=== PATIENT | male | born 1970 | race African-American/Black ===

== ENCOUNTER 2016-07-28 11:45 | Emergency (ER) | payer MEDICAID ==
[~2016-07-28] VITALS: Ht 182.9 cm; Wt 84.0 kg
[~2016-07-28 11:45] MED LIST: METH-24 PO
[2016-07-28 12:20] VITALS: BP 150/99
[2016-07-28] MEDS ORDERED: ACETAMINOPHEN 325MG TABLET PO ONE (14:00)
== END 2016-07-28 14:02 | disposition home or self-care (01) ==
LOC: ER 12:22
DX: M25.551 Pain in right hip (principal); Z79.899 Other long term (current) drug therapy; F17.200 Nicotine dependence, unspecified, uncomplicated
CPT/HCPCS: 72100; 73502; 99284; Z7610

== ENCOUNTER 2018-10-17 19:43 | Emergency (ER) | payer MEDICAID ==
[~2018-10-17] VITALS: Ht 182.9 cm; Wt 66.0 kg
[~2018-10-17 19:43] MED LIST changes: -METH-24 PO; +METH-375 PO
[2018-10-17 20:01] VITALS: BP 129/66
== END 2018-10-17 22:15 | disposition left against medical advice (07) ==
LOC: ER 19:43
DX: Z53.21 Procedure and treatment not carried out due to patient leaving prior to being seen by health care provider (principal)

== ENCOUNTER 2018-10-18 08:03 | Emergency (ER) | payer MEDICAID | END 2018-10-18 08:37 | disposition left against medical advice (07) | LOC: ER 08:03 | DX: Z53.21 Procedure and treatment not carried out due to patient leaving prior to being seen by health care provider (principal) ==

== ENCOUNTER 2018-10-22 10:44 | Emergency (ER) | payer MEDICAID ==
[~2018-10-22] VITALS: Ht 182.9 cm; Wt 79.0 kg
[2018-10-22 13:56] LABS: BASOPHILS % 1.3 % (0.0-2.0); EOSINOPHILS % 1.2 % (0.0-5.0); HEMATOCRIT. 40.4 % (42.0-52.0); HEMOGLOBIN. 13.7 g/dL (14.0-18.0); LYMPHOCYTES % 48.9 % (20.0-50.0); MEAN CORPUSCULAR HEMOGLOBIN 33.7 pg (28.0-32.0); MEAN CORPUSCULAR VOLUME 99.7 fL (80.0-94.0); MONOCYTES % 10.7 % (2.0-8.0); NEUTROPHILS % 37.9 % (40.0-76.0); PLATELET 151 x1000/uL (130-400); RED BLOOD CELL COUNT 4.05 mill/uL (4.7-6.1); RED CELL DISTRIBUTION WIDTH 13.5 % (11.6-14.6)
[2018-10-22 13:57] LABS: CLARITY URINE CLEAR (CLEAR); COLOR URINE YELLOW (YELLOW); KETONES URINE NEGATIVE (NEGATIVE); LEUKOCYTE ESTERASE URINE NEGATIVE (NEGATIVE); NITRITE URINE NEGATIVE (NEGATIVE); OCCULT BLOOD URINE NEGATIVE (NEGATIVE); PH URINE 6.5 (4.5-8.0); PROTEIN URINE NEGATIVE (NEGATIVE); SPECIFIC GRAVITY URINE 1.006 (1.005-1.030); UROBILINOGEN URINE 0.2 E.U./dL (0.2-1.0)
[2018-10-22 14:06] LABS: CHLORIDE 106 mEq/L (98-107)
[2018-10-22 14:16] LABS: ETHANOL BLOOD 268 mg/dL
[2018-10-22 14:19] LABS: *AMPHETAMINES SCREEN URINE NEGATIVE (NEGATIVE); *BARBITURATES SCREEN URINE NEGATIVE (NEGATIVE)
[2018-10-22 14:20] LABS: *BENZODIAZEPINES SCREEN URINE NEGATIVE (NEGATIVE); *COCAINE SCREEN URINE NEGATIVE (NEGATIVE)
[2018-10-22 14:21] LABS: METHADONE URINE SCREEN NEGATIVE (NEGATIVE); OPIATES URINE SCREEN NEGATIVE (NEGATIVE)
[2018-10-22 14:22] LABS: CANNABINOID URINE SCREEN NEGATIVE (NEGATIVE); PHENCYCLIDINE URINE SCREEN NEGATIVE (NEGATIVE)
[2018-10-22 14:25] VITALS: BP 113/73
== END 2018-10-22 14:30 | disposition home or self-care (01) ==
LOC: ER 10:44
DX: R10.32 Left lower quadrant pain (principal); F10.129 Alcohol abuse with intoxication, unspecified; Y90.8 Blood alcohol level of 240 mg/100 ml or more
CPT/HCPCS: 36415; 80305; 80320; 99283; G0480